=== PATIENT | female | born 1995 | race Caucasian/White ===

== ENCOUNTER 2023-10-05 21:38 | Observation (INO) | payer OTHER, SELFPAY ==
[2023-10-05 22:03] VITALS: BP 146/94; BP 203/148; PULSE 104; PULSE 132; RESP 20; O2SAT 100; BMI 22.9
[2023-10-05] MEDS: LORazepam 1 MG TABLET 2 MG PO (22:08)
[2023-10-05 22:30] VITALS: BP 135/86; PULSE 93; RESP 18; TEMP 37.4; O2SAT 100
--- NOTE | 2023-10-05 22:30 | ECG_ITS ---
Test Reason : HYPERTENSION Blood Pressure : / mmHG Vent. Rate : 101 BPM Atrial Rate : 101 BPM P-R Int : 118 ms QRS Dur : 072 ms QT Int : 468 ms P-R-T Axes : 072 078 068 degrees QTc Int : 606 ms Sinus tachycardia Prolonged QT Nonspecific ST abnormality Abnormal ECG No previous ECGs available Referred By: Amrita Andersen Electronically Signed By:TY REINOSO MD
--- NOTE | 2023-10-05 22:39 | ED.GENADULT ---
HPI - General Adult General Chief complaint: General Medical Stated complaint: N/V X 3DAYS Time Seen by Provider: 10/05/23 22:30 Source: patient Mode of arrival: ambulatory Limitations: no limitations History of Present Illness HPI narrative: patient comes to the emergency room complaining of nausea and vomiting for 3 days. When patient arrived to the emergency room, patient had a panic attack. Patient denies abdominal pain, patient complaining of muscle spasms In upper and lower extremities. this is as much history that we could get from the patient, otherwise, patient answers to all other questions I do not know . Related Data Allergies Allergy/AdvReac Type Severity Reaction Status Date / Time No Known Allergies Allergy Verified 10/05/23 22:03 Review of Systems Review of Systems: Constitutional : No Weight loss, No Fever, No Chills, No Night Sweats, No Fatigue, No Malaise ENT/Mouth : No Hearing loss, No Ear Pain, No Nasal Congestion, No Sinus Pain, No Hoarseness, No sore throat, No Rhinorrhea, No Swallowing Difficulty Eyes: No Eye Pain, No Swelling, No Redness, No Foreign Body, No Discharge, No Vision Changes Cardiovascular : No Chest Pain, No SOB, No Dyspnea on Exertion, No Orthopnea, No Edema, No Palpitations Respiratory : No Cough, No Sputum, No Wheezing, No Smoke Exposure, No Dyspnea Gastrointestinal : complaining of nausea vomiting for 3 days,No Constipation, No abdominal Pain, No Hematochezia, No Melena Genitourinary : no irregular bleeding, No Dysuria, No Urinary Frequency, No Hematuria, No Urinary Incontinence, No Urgency, No Flank Pain, No Urinary Flow Changes, No Hesitancy Musculoskeletal : No joint pain, No Myalgias, No Joint Swelling, complaining of muscle spasms in upper extremities and lower extremities Skin : No Skin Lesions, No rash Neuro : No Weakness, No Numbness, No Paresthesias, No Loss of Consciousness, No Dizziness, No Headache Psych : Panic attack,No Depression, No SI/HI/AH/VH, No Social Issues, Heme/Lymph: No Bruising, No Bleeding,No Lymphadenopathy Endocrine : No Polyuria, No Polydipsia, No Temperature Intolerance PMFSH Social History Social History Advance Directives: No Advance Directives Information Provided: No Physical Exam ED Vital Signs: Vital Signs - 24 hr 10/05/23 22:03 10/05/23 22:30 10/05/23 23:01 Temperature 99.4 F Pulse Rate 132 H 93 92 Respiratory Rate 20 18 20 Blood Pressure 203/148 H 135/86 136/96 H Pulse Oximetry 100 100 99 Oxygen Delivery Method Room Air Room Air Room Air 10/05/23 23:26 10/06/23 01:00 Temperature 98.6 F 98.7 F Pulse Rate 78 71 Respiratory Rate 19 20 Blood Pressure 132/84 118/77 Pulse Oximetry 100 99 Oxygen Delivery Method Room Air BMI result Body Mass Index 22.9 Const Other: Appearance: Alert. Oriented X3. No acute distress. Eyes: Pupils equal, round and reactive to light. ENT: Pharynx normal. Neck: Normal inspection. Neck supple. No lymph nodes noted. No crepitus CVS: Normal heart rate and rhythm. Pulses normal. Normal S1 and S2 Respiratory: No respiratory distress. Breath sounds normal. No Wheezing. No rales Abdomen: Soft and nontender. No rigidity. No distention. Skin: Skin warm and dry. Normal skin color. Normal skin turgor. Extremities: No lower extremity edema. No Lacerations. No Rash Neuro: Oriented X 3. No motor deficit. No sensory deficit. Moving all extremities. No slurred speech. CN 2 through 12 grossly intact Psych: calm, appear anxious, not quite answering questions other than I do not know Medications Administered Discontinued Medications Generic Name Dose Route Start Last Admin Trade Name Freq PRN Reason Stop Dose Admin Sodium Chloride 1,000 mls @ 999 mls/hr 10/05/23 22:40 10/06/23 00:50 Ns IVCONT 10/05/23 23:40 Infused .Q1H1M ONE Infusion Magnesium Sulfate 2 gm in 50 mls @ 25 mls/hr 10/05/23 22:56 10/06/23 01:25 Magnesium Sulfate/H2o IV 10/06/23 00:55 Infused ONCE ONE Infusion Lorazepam 2 mg 10/05/23 22:02 10/05/23 22:08 Lorazepam 1 Mg Tablet PO 10/05/23 22:03 2 mg ONCE ONE Administration Ondansetron HCl 4 mg 10/05/23 22:40 10/05/23 23:01 Ondansetron Hcl 4 Mg/2 Ml Vial IVPUSH 10/05/23 22:41 4 mg ONCE ONE Administration Medical Decision Making Medical Decision Making MDM Narrative: - my interpretation EKG, normal sinus tachycardia, 100 101, no ST segment depression elevation, no T-wave inversion, QTC 606 - all the patient's labs pending. Given the patient's prolonged QTC, patient was given IV magnesium 2 g. We will recheck the EKG after the IV magnesium has been given - troponin is elevated, no previous baselines. We will repeat troponin 3 hours after the initial set - After 3 hours, QTC improved to 530, still elevated. However, troponin 2. Increased. - patient's troponin 1 Was 43.9, troponin 2 was 52.9 - I discussed the patient with Dr. Smith from Cardiology, observation recommended - discussed the patient with Dr. Gould. patient being admitted. Patient's vital stable, blood pressure 118/77, heart rate 71, respirations 20, oxygen saturation 99% on room air. Differential Diagnosis Differential Diagnoses: The differential diagnosis associated with the presentation includes ( Electrolyte abnormality, ACS, NSTEMI, normal variant) Admission/Observation Consideration of admission/observation: Escalation of care including admission/observation considered Consult Healthcare Provider Management of the patient was discussed with: Hospitalist and Customer Experience Associate Lab Data [facility] Lab Attestation statement: I reviewed the patient's lab results. 10/05/23 22:41 10/05/23 22:41 Labs: Lab Results 10/05/23 10/06/23 Range/Units 22:41 01:38 WBC 7.5 (4.8-10.8) X10*3/uL RBC 6.14 H (4.20-5.50) X10*6/uL Hgb 15.7 (12.0-16.0) g/dl Hct 46.0 (37.0-47.0) % MCV 74.9 L (80.0-98.0) fL MCH 25.6 L (27.0-33.0) pg MCHC 34.1 (31.0-35.0) g/dl RDW 15.8 (11.0-16.0) % Plt Count 342 (160-400) X10*3/uL MPV 11.3 (9.4-12.3) fL Immature Gran % (Auto) 0.4 (0.0-0.4) % Neut % (Auto) 76.3 H (45-73) % Lymph % (Auto) 16.2 L (20-40) % [place] % (Auto) 7.0 (2-11) % Eos % (Auto) 0.0 (0-4) % Baso % (Auto) 0.1 (0-2) % Lymph # (Auto) 1.2 (1.2-4.9) X10*3/uL [place] # (Auto) 0.5 (0.1-1.2) X10*3/uL Eos # (Auto) 0.0 (0.0-0.4) X10*3/uL Baso # (Auto) 0.0 (0.0-0.2) X10*3/uL Abs Immat Gran (auto) 0.03 (0.00-0.03) X10*3/uL Absolute Neuts (auto) 5.7 (2.0-8.3) x10*3/uL Absolute Nucleated RBC 0.000 (0.0-0.012) X10*3/uL Nucleated RBC % (auto) 0.0 (0.0-0.2) /100WBC Sodium 136 (135-145) mmol/L Potassium 3.4 (3.3-5.1) mmol/L Chloride 106 (96-108) mmol/L Carbon Dioxide 16 L (22-29) mmol/L Anion Gap 17 (12-20) BUN 15 (9-16) mg/dL Creatinine 0.78 (0.5-1.4) mg/dL Estim Creat Clear Calc 84.9 Estimated GFR > 60 Random Glucose 191 H (60-115) mg/dL Calcium 9.4 (8.4-10.2) mg/dL Magnesium 2.0 2.6 (1.6-2.6) mg/dL Total Bilirubin 0.3 (0.0-1.0) mg/dL Direct Bilirubin 0.1 (0.0-0.5) mg/dL AST 73 H (5-31) U/L ALT 155 H (0-31) U/L Alkaline Phosphatase 86 (39-117) U/L Troponin I High Sens 43.9 H 52.9 H* (<3.5-17.0) ng/L Total Protein 7.7 (6.5-8.0) g/dL Albumin 4.2 (3.5-5.0) g/dL Lipase 7 L (8-78) U/L Beta HCG, Quant < 2 mIU/mL Independent Interpretation I performed an independent interpretation of an: EKG Critical Care Time Critical Care Time Critical Care Time: Yes Total Critical Care Time: 60 Attestation: I have personally provided critical care time. Time includes review of lab data, radiology results, discussion with consultants, and monitoring for potential decompensation. Intervention performed as documented. Discharge Plan Discharge Clinical Impression: Muscle spasm, Prolonged QT interval Patient Disposition: Admitted as Observation
--- NOTE | 2023-10-05 22:50 | MHC.EDTECH ---
Patient was changed into hospital attire and placed on the cardiac specialist, EKG was taken per order and signed by provider,labs were obtained and sent to lab. call roy within reach of patient
[2023-10-05 22:57] LABS: Basophils Percent Auto 0.1 % (0-2); Hemoglobin 15.7 g/dl (12.0-16.0); Imm Gran Abs Auto 0.03 X10*3/uL (0.00-0.03); Imm Gran Pct Auto 0.4 % (0.0-0.4); Lymphocytes Absolute Auto 1.2 X10*3/uL (1.2-4.9); Lymphocytes Percent Auto 16.2 % (20-40); MANUAL DIFF FLAG NO; Mean Corpuscular HGB Conc 34.1 g/dl (31.0-35.0); Mean Corpuscular Hemoglobin 25.6 pg (27.0-33.0); Mean Corpuscular Volume 74.9 fL (80.0-98.0); Mean Platelet Volume 11.3 fL (9.4-12.3); Monocytes Absolute Auto 0.5 X10*3/uL (0.1-1.2); Neutrophils Absolute Auto 5.7 x10*3/uL (2.0-8.3); Neutrophils Percent Auto 76.3 % (45-73); Platelet Count 342 X10*3/uL (160-400); Red Blood Count 6.14 X10*6/uL (4.20-5.50); Red Cell Distribution Width 15.8 % (11.0-16.0); White Blood Count 7.5 X10*3/uL (4.8-10.8)
[2023-10-05 23:01] VITALS: BP 136/96; PULSE 92; RESP 20; O2SAT 99
[2023-10-05] MEDS: ondansetron HCL 4 MG/2 ML VIAL IVPUSH (23:01)
[2023-10-05] MEDS: 0.9 % Sodium Chloride 1,000 ML 999 ML IVCONT (23:01)
--- NOTE | 2023-10-05 23:02 | PC.NURSE ---
20g RAC placed, medication administered per MAR
[2023-10-05] MEDS: Magnesium Sulfate/H2O 2 GM/50 ML PIGGYBACK IV (23:13)
[2023-10-05 23:18] LABS: Alanine Aminotransferase 155 U/L (0-31); Albumin Level 4.2 g/dL (3.5-5.0); Alkaline Phosphatase 86 U/L (39-117); Anion Gap 17 (12-20); Aspartate Amino Transferase 73 U/L (5-31); Bilirubin Direct 0.1 mg/dL (0.0-0.5); Bilirubin Total 0.3 mg/dL (0.0-1.0); Blood Urea Nitrogen 15 mg/dL (9-16); Calcium 9.4 mg/dL (8.4-10.2); Carbon Dioxide 16 mmol/L (22-29); Chloride 106 mmol/L (96-108); Creatinine Clr Calc Pharmacy 84.9; Estimated Glomerular Filt Rate > 60; Glucose Random 191 mg/dL (60-115); Lipase 7 U/L (8-78); Potassium 3.4 mmol/L (3.3-5.1); Sodium 136 mmol/L (135-145); Total Protein 7.7 g/dL (6.5-8.0)
[2023-10-05 23:19] LABS: HCG Quantitative < 2 mIU/mL; Troponin-I High Sensitivity 43.9 ng/L (<3.5-17.0)
[2023-10-05 23:26] VITALS: BP 132/84; PULSE 78; RESP 19; TEMP 37; O2SAT 100
--- NOTE | 2023-10-05 23:27 | MHC.EDTECH ---
Hourly rounds and vitals completed, patient is unable to give urine sample at this time will re-attempt. Call roy within reach and visitor at bedside.
[2023-10-06 01:00] VITALS: BP 118/77; PULSE 71; RESP 20; TEMP 37.1; O2SAT 99
--- NOTE | 2023-10-06 01:09 | ECG_ITS ---
Test Reason : REPEAT Blood Pressure : / mmHG Vent. Rate : 080 BPM Atrial Rate : 080 BPM P-R Int : 134 ms QRS Dur : 088 ms QT Int : 460 ms P-R-T Axes : 047 066 052 degrees QTc Int : 530 ms Normal sinus rhythm Prolonged QT Nonspecific ST abnormality Abnormal ECG When compared with ECG of 05-OCT-2023 22:42, QT has shortened Referred By: Amrita Andersen Electronically Signed By:TY REINOSO MD
--- NOTE | 2023-10-06 01:26 | MHC.EDTECH ---
Repeat EKG taken per order,hourly rounds and vitals completed.
--- NOTE | 2023-10-06 01:39 | MHC.EDTECH ---
Repeat labs drawn and sent to lab.
[2023-10-06 02:09] LABS: Magnesium 2.6 mg/dL (1.6-2.6)
[2023-10-06 02:25] LABS: Troponin-I High Sensitivity 52.9 ng/L (<3.5-17.0)
--- NOTE | 2023-10-06 03:24 | P.HPHOSP_ITS ---
History of Present Illness Date of Service: 10/06/23 Chief Complaint: Nausea vomiting This is a 27-year-old female with no pertinent significant past medical history who presents to the emergency department for evaluation of nausea and vomiting. Patient states it has been ongoing for the last 3 days. Also has multiple complaints including muscle spasms, chest pain. Patient states she has been feeling sick and anxious for the last 3 days. No specifics given, patient is very vague in her complaints. States the chest pain does not increase with ambulation and does not resolve with rest. She was found to be tachycardic and hypertensive upon arrival. No fever, chills, palpitations, shortness of breath, abdominal pain, changes in urinary or bowel habits. In the emergency department, troponin found to be elevated and patient found to have a prolonged QT interval. Cardiology was consulted who requested admission for observation. Review of Systems 2 Constitutional: Constitutional: Reports fatigue, Reports lethargy and Reports weakness Cardiovascular: Cardiovascular: Reports chest pain Respiratory: Respiratory: Reports no additional respiratory complaints Gastrointestinal: Gastrointestinal: Reports nausea and Reports vomiting Genitourinary: Genitourinary: Reports no additional female genitourinary complaints Neurologic: Reports weakness Endocrine: Endocrine: Reports fatigue PMFSH Pertinent family history: No family history of early CAD Social History Patient Tobacco Use Status: Never used Tobacco Meds Allergies Allergy/AdvReac Type Severity Reaction Status Date / Time No Known Allergies Allergy Verified 10/05/23 22:03 Physical Exam 2 Vital Signs and Narrative: Vital Signs: Last Vital Signs Temp 98.7 F 10/06/23 01:00 Pulse 71 10/06/23 01:00 Resp 20 10/06/23 01:00 BP 118/77 10/06/23 01:00 Pulse Ox 99 10/06/23 01:00 O2 Del Method Room Air 10/05/23 23:26 BMI result Body Mass Index 22.9 Young female lying in bed in no distress Neck supple, no JVD Regular rate and rhythm, S1-S2 heard Regular breath sounds bilaterally, no wheezing or crackles appreciated Abdomen soft nontender, no guarding, no rigidity Patient is awake, alert and oriented to self, place, time and person ; no focal motor deficit Psych: Normal mood No pedal edema Results Labs 10/05/23 22:41 10/05/23 22:41 Labs: Laboratory Results - last 24 hr 10/05/23 10/06/23 22:41 01:38 MCV 74.9 L MCH 25.6 L MCHC 34.1 RDW 15.8 Plt Count 342 MPV 11.3 Immature Gran % (Auto) 0.4 Neut % (Auto) 76.3 H Lymph % (Auto) 16.2 L [place] % (Auto) 7.0 Eos % (Auto) 0.0 Baso % (Auto) 0.1 Lymph # (Auto) 1.2 [place] # (Auto) 0.5 Eos # (Auto) 0.0 Baso # (Auto) 0.0 Abs Immat Gran (auto) 0.03 Absolute Neuts (auto) 5.7 Absolute Nucleated RBC 0.000 Nucleated RBC % (auto) 0.0 Anion Gap 17 Estim Creat Clear Calc 84.9 Estimated GFR > 60 Random Glucose 191 H Calcium 9.4 Magnesium 2.0 2.6 Total Bilirubin 0.3 Direct Bilirubin 0.1 AST 73 H ALT 155 H Alkaline Phosphatase 86 Total Protein 7.7 Albumin 4.2 Lipase 7 L Beta HCG, Quant < 2 Assessment and Plan (1) Prolonged QT interval: Status: Acute (2) Elevated troponin: Status: Acute Plan This is a 27-year-old female with no pertinent significant past medical history who presents to the emergency department for evaluation of nausea and vomiting. #. Elevated troponin with prolonged QT interval: Will admit for observation with cardiac monitoring. IV magnesium given in the ER. Cardiology consulted from the ER, appreciate assistance. Trending troponin #. Elevated blood pressure: Upon arrival which normalized after lorazepam. ?anxiety leading to tachycardia. Continue to monitor #. Nausea/vomiting: Symptomatic treatment for now #. Hyperglycemia: Obtaining A1c #. Elevated liver enzymes: Outpatient follow-up Med rec pending DVT prophylaxis: None Quality Stroke Does the patient have a stroke diagnosis?: No VTE Prior VTE?: No VTE Risk Level:: Medical - low VTE Device Contraindication: Treatment Not Indicated VTE Drug Contraindication: Treatment Not Indicated
--- OUTSIDE RECORDS SUMMARY | 2023-10-06 03:28 | XMS_ITS | Continuity of Care Document ---
Author Name Unknown Organization [facility] ter Address [address] [place] [id number] Care Team Providers Care Insurance Solicitor Name Role Phone Martha Van MD Primary Care Physician [phone] [facility] [place] - 04/15/[address] [phone]- Encounter Diagnosis Gastritis(Final) - 04/15/21 Discharge Disposition: A-D/C Home Attending Physician: Joey Marie MD Admitting Physician: Joey Marie MD Referring Physician: Not on Staff, Referring MD Allergies, Adverse Reactions, Alerts Substance Reaction Severity Status Shrimp THROAT SWELLING Unknown Active Immunizations Given and Recorded Vaccine Date Status Refusal Reason influenza virus vaccine, inactivated 09/26/12 Give n influenza virus vaccine, inactivated 09/27/11 Give n Influenza Inactive (IM) (oldterm) 1 08/01/09 Given Influenza Inactive (IM) (oldterm) 2 10/14/01 Given Human Papillomavirus Vaccine 3 08/01/09 Given Human Papillomavirus Vaccine 07/08/08 Given Human Papillomavirus Vaccine 03/28/07 Given Tet/Diphth/Acel, Pertussis (oldterm) 07/08/08 Give n Meningococcal Conjugate Vaccine 03/28/07 Given Diphth/Pertussis,Acel/Tetanus (oldterm) 11/29/99 G iven Diphth/Pertussis,Acel/Tetanus (oldterm) 02/11/96 G iven Diphth/Pertussis,Acel/Tetanus (oldterm) 07/30/95 G iven Diphth/Pertussis,Acel/Tetanus (oldterm) 05/31/95 G iven Diphth/Pertussis,Acel/Tetanus (oldterm) 01/16/95 G iven Measles/Mumps/Rubella Virus Vaccine 11/28/99 Given Measles/Mumps/Rubella Virus Vaccine 02/11/96 Given Haemophilus B Conj Vaccine (oldterm) 02/11/96 Give n Haemophilus B Conj Vaccine (oldterm) 07/30/95 Give n Haemophilus B Conj Vaccine (oldterm) 05/31/95 Give n Haemophilus B Conj Vaccine (oldterm) 01/16/95 Give n Poliovirus Vaccine, Inactivated 02/11/96 Given Poliovirus Vaccine, Inactivated 07/30/95 Given Poliovirus Vaccine, Inactivated 05/31/95 Given Poliovirus Vaccine, Inactivated 01/16/95 Given Hepatitis B Vaccine (old term) 4 05/31/95 Given Hepatitis B Vaccine (old term) 5 94 Given Hepatitis B Vaccine (old term) 6 94 Given 1Admin Note: VIS Given 2Admin Note: hx varicella '97 3Admin Note: VIS Given 4Admin Note: HEP B 5Admin Note: HEP B 6Admin Note: HEP B Medications Aerochamber See Instructions, # 2 applicator, Maintenance, see instructions, 10/10/11 15:12:07 Start Date: 10/10/11 Status: Ordered Aerochamber Aerochamber, See Instructions, # 1 box, Refills 0, Tot. Refills 0, Maintenance, For use with flovent, 10/21/14 19:02:22, Compound Start Date: 10/21/14 Status: Ordered albuterol CFC free 90 mcg/inh inhalation aerosol 1, puffs, Inhalation, 4 times a day, PRN, # 1 each, Refills 11, Tot. Refills 11, Maintenance, 09/10/16 9:48:41, Aerosol, Route to Pharmacy Electronically, [id number], [facility]/pharmacy #[id number], Compound Start Date: 09/10/16 Stop Date: 09/05/17 Status: Ordered fluticasone CFC free 110 mcg/inh inhalation aerosol 2 puffs, Inhalation, 2 times a day, # 1 each, 11 Refills, Maintenance, 09/10/16 9:50:44, Aerosol Start Date: 09/10/16 Stop Date: 09/05/17 Status: Ordered Zofran 4 mg oral tablet 1 tablet = 4 mg, By Mouth, Every 8 hours, PRN as needed for nausea/vomiting, # 3 tablet, 0 Refills,Maintenance, 02/12/17 6:14:09, Tablet Start Date: 02/12/17 Stop Date: 02/13/17 Status: Ordered Problem List Condition Effective Dates Status Health Status Inform ant Allergic rhinitis(Confirmed) Active Constipation(Confirmed) Active Difficulty sleeping(Confirmed) Active Dysmenorrhea(Confirmed) Active EIA - Exercise-induced asthma(Confirmed) Active Vital Signs Most recent to oldest [Reference Range]: 1 2 3 Height 166 cm (04/15/21 9:58 AM) 166 cm (04/15/21 9:52 AM) Oxygen Saturation [94-100 %] 100 % (04/15/21 4:00 PM) 98 % (04/15/21 9:52 AM) 99 % (04/15/21 9:46 AM) Pulse Rate [55-90 bpm] 78 bpm (04/15/21 4:00 PM) 94 bpm *H* (04/15/21 9:52 AM) 78 bpm (04/15/21 9:46 AM) Blood Pressure [90-138/55-84 mm Hg] 106/93mm Hg (04/15/21 4:00 PM) 124/68mm Hg (04/15/21 9:52 AM) Respiratory Rate [16-30 br/min] 18 br/min (04/15/21 4:00 PM) 20 br/min (04/15/21 9:52 AM) Temperature [96.8-100.4 DegF] 98.6 DegF (04/15/21 4:00 PM) 98.4 DegF (04/15/21 9:52 AM) Mode of Delivery (Oxygen) Room air (04/15/21 4:00 PM) Room air (04/15/21 9:52 AM) Room air (04/15/21 9:46 AM) Blood pressure sites Arm, left (04/15/21 4:00 PM) Arm, right (04/15/21 9:52 AM) Temperature Route Oral (04/15/21 4:00 PM) Oral (04/15/21 9:52 AM) Social History Social History Type Response Smoking Status Never smoker entered on: 10/21/14 Sex
--- OUTSIDE RECORDS SUMMARY | 2023-10-06 03:28 | XMS_ITS | Continuity of Care Document ---
Author Name Unknown Organization [facility] ter Address [address] [place] [id number]- Care Team Providers Care Cemetery Manager Name Role Phone Martha Van MD Primary Care Physician [place] [facility] - 10/11/[address] [address]- Discharge Disposition: A-D/C Home Attending Physician: Jc MARTINEZ [OB], Mariel Rangel Admitting Physician: Jc MARTINEZ [OB], Mariel Rangel Referring Physician: Jc MARTINEZ [OB], Mariel Rangel Allergies, Adverse Reactions, Alerts Substance Reaction Severity [...] a day, PRN, # 1 each, Refills 0, Tot. Refills 0, Maintenance, 04/24/21 17:55:00 EDT, Aerosol, Route to Pharmacy Electronically, [id number], [facility]/pharmacy #[id number], 166, cm, 04/15/21 9:58:00 EDT, Height Start Date: 04/24/21 Stop Date: 05/24/21 Status: Ordered fluticasone CFC free 110 mcg/inh inhalation aerosol 2 puffs, Inhalation, 2 times a day, # 1 each, 0 Refills, Maintenance, 04/24/21 17:55:00 EDT, Aerosol, [facility]/pharmacy #[id number], 166, cm, 04/15/21 9:58:00 EDT, Height Start Date: 04/24/21 Stop Date: 05/24/21 Status: Ordered Prenatabs Rx oral tablet 1 tablet, By Mouth, Daily, # 30 tablet, 0 Refills, Maintenance, 04/24/21 18:22:00 EDT, Tablet, [facility]/pharmacy #[id number], Partial fill upon patient request if the prescription is for a schedule II opioid drug., 1 tablet By Mouth Daily, 166, cm, 04/15/21 9:58... Start Date: 04/24/21 Status: Ordered Tylenol 325 mg oral tablet 975 mg, Tablet, By Mouth, Every 6 hours, PRN for Pain , Moderate, Routine, 10/11/21 6:49:00 EST Start Date: 10/11/21 Stop Date: 10/11/21 Status: Discontinued Zofran 4 mg oral tablet 1 tablet = 4 mg, By Mouth, Every 8 hours, PRN as needed for nausea/vomiting, # 9 tablet, 0 Refills,Maintenance, 04/24/21 17:55:00 EDT, Tablet, [facility]/pharmacy #[id number], 166, cm, 04/15/21 9:58:00 EDT, Height Start Date: 04/24/21 Stop Date: 04/27/21 Status: Ordered Problem List Condition Effective Dates Status Health Status Inform ant Allergic rhinitis(Confirmed) Active Asthma(Confirmed) Active Constipation(Confirmed) Active Difficulty sleeping(Confirmed) Active Dysmenorrhea(Confirmed) Active EIA - Exercise-induced asthma(Confirmed) Active Gestational diabetes mellitu s, antepartum(Confirmed) Active Obese class I(Confirmed) Active Procedures Procedure Date Related Diagnosis Body Site Status [place] tooth Completed Vital Signs Most recent to oldest [Reference Range]: 1 2 3 Height 158 cm (10/10/21 4:08 PM) 158 cm (10/10/21 12:24 PM) Weight 82 kg (10/10/21 4:13 PM) 82 kg (10/10/21 4:08 PM) Oxygen Saturation [94-100 %] 100 % (10/11/21 6:39 AM) 99 % (10/10/21 8:47 PM) 97 % (10/10/21 2:11 PM) Pulse Rate [55-90 bpm] 90 bpm (10/10/21 4:08 PM) 72 bpm (10/10/21 12:24 PM) Body Mass Index [18.5-24.99] 32.85 *>HHI* (10/10/21 4:08 PM) Blood Pressure [90-138/55-84 mm Hg] 126/49mm Hg (10/11/21 6:39 AM) 98/52mm Hg (10/10/21 8:47 PM) 119/65mm Hg (10/10/21 4:08 PM) Respiratory Rate [16-30 br/min] 18 br/min (10/11/21 7:27 AM) 18 br/min (10/11/21 6:39 AM) 18 br/min (10/10/21 8:47 PM) Temperature [96.8-100.4 DegF] 98.1 DegF (10/10/21 8:47 PM) 98.1 DegF (10/10/21 4:08 PM) 98.3 DegF (10/10/21 12:24 PM) Blood pressure sites Arm, left (10/10/21 4:08 PM) Arm, right (10/10/21 12:24 PM) Temperature Route Oral (10/10/21 8:47 PM) Oral (10/10/21 4:08 PM) Oral (10/10/21 12:24 PM) Dry Weight 82 kg (10/10/21 4:08 PM) Social History Social History Type Response Smoking Status Never smoker entered on: 10/21/14 Sex
--- OUTSIDE RECORDS SUMMARY | 2023-10-06 03:28 | XMS_ITS | Continuity of Care Document ---
Author Name Unknown Organization [facility] Address [address] [place] [address]- Care Team Providers Care Riding Double Name Role Phone Martha Van MD Primary Care Physician En[place] [facility] [place] Date(s): 05/30/23 - 06/30/[address] [address] Attending Physician: Miguel Green MD Admitting Physician: Miguel Green MD Allergies, Adverse Reactions, Alerts No Known Medication Allergies Substance Reaction Severity Status Shrimp THROAT SWELLING [...] 17:55:00 EDT, Aerosol, Route to Pharmacy Electronically, [id number], [facility]/pharmacy #1972, 166, cm, 04/15/21 9:58:00 EDT, Height Start Date: 04/24/21 Stop Date: 05/24/21 Status: Ordered fluticasone CFC free 110 mcg/inh inhalation aerosol 2 puffs, Inhalation, 2 times a day, # 1 each, 0 Refills, Maintenance, 04/24/21 17:55:00 EDT, Aerosol, [facility]/pharmacy #1972, 166, cm, 04/15/21 9:58:00 EDT, Height Start Date: 04/24/21 Stop Date: 05/24/21 Status: Ordered Prenatabs Rx oral tablet 1 tablet, By Mouth, Daily, # 30 tablet, 0 Refills, Maintenance, 04/24/21 18:22:00 EDT, Tablet, [facility], Partial fill upon patient request if the prescription is for a schedule II opioid drug., 1 tablet By Mouth Daily, 166, cm, 04/15/21 9:58... Start Date: 04/24/21 Status: Ordered Zofran 4 mg oral tablet 1 tablet = 4 mg, By Mouth, Every 8 hours, PRN as needed for nausea/vomiting, # 9 tablet, 0 Refills,Maintenance, 04/24/21 17:55:00 EDT, Tablet, [facility], 166, cm, 04/15/21 9:58:00 EDT, Height Start Date: 04/24/21 Stop Date: 04/27/21 Status: Ordered Problem List Condition Confirmation Course Effective Dates Status Health St atus Informant Allergic rhinitis Confirmed Active Asthma Confirmed Active Constipation Confirmed Active Difficulty sleeping Confirmed Active Dysmenorrhea Confirmed Active EIA - Exercise-induced asthma Confirmed Active Gestational diabetes mellitus, antepartum Confirmed Active Social History Social History Type Response Smoking Status Never smoker entered on: 10/21/14 Sex Patient Care team information Care Team Personnel Name: Martha Van MD Position: [facility] Physician - Primary Care Member Role: PCP Address: Address: [address] [place] [address] [place] [address]- Name: Kaylene Boudreaux RN Position: S RN Member Role: Primary Care Nurse Name: Pallavi Dobbins RN Position: [facility] RN Member Role: Primary Care Nurse Care Team Related Persons Name: DARIAN COBB Address: home [address] [place], [place] Name: DEVONTE COBB Address: home [address] [place] [address] Name: ABEBA QUEZADA Address: home [address] [place] [address] Name: AYAN QUEZADA Address: home [address] [place] [address] Name: DARIAN GARCIA Address: home [address] [place] [address]
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
--- OUTSIDE RECORDS SUMMARY | 2023-10-06 03:28 | XMS_ITS | Continuity of Care Document ---
Author Name Unknown Organization [facility] Address [address] [place] [address]- Care Team Providers Care Nub Card Tender Name Role Phone Martha Van MD Primary Care Physician Encounter [facility] [place] Date(s): 10/05/22 - 10/05/[address] [address]- Discharge Disposition: A-D/C Home Attending Physician: Miguel Green MD Admitting Physician: Miguel Green MD Referring Physician: Miguel Green MD Allergies, Adverse Reactions, Alerts Substance Reaction [...] 17:55:00 EDT, Aerosol, Route to Pharmacy Electronically, [id number], [facility]/pharmacy #1972, 166, cm, 04/15/21 9:58:00 EDT, [...] Active Gestational diabetes mellitus, antepartum Confirmed Active Vital Signs Most recent to oldest [Reference Range]: 1 2 3 Height 160 cm (10/05/22 12:11 PM) Weight 66.3 kg (10/05/22 12:11 PM) Oxygen Saturation [94-100 %] 100 % (10/05/22 3:55 PM) 99 % (10/05/22 3:50 PM) 98 % (10/05/22 3:45 PM) Pulse Rate [55-90 bpm] 64 bpm (10/05/22 12:11 PM) Body Mass Index [18.5-24.99 kg/m2] 25.9 kg/m2 *H* (10/05/22 12:11 PM) Blood Pressure [90-138/55-84 mm Hg] 112/65mm Hg (10/05/22 3:55 PM) 113/49mm Hg (10/05/22 3:50 PM) 102/56mm Hg (10/05/22 3:45 PM) Respiratory Rate [16-30 br/min] 21 br/min (10/05/22 3:55 PM) 16 br/min (10/05/22 3:50 PM) 16 br/min (10/05/22 3:45 PM) Temperature [96.8-100.4 DegF] 97.8 DegF (10/05/22 12:11 PM) Mode of Delivery (Oxygen) Room air (10/05/22 3:55 PM) Room air (10/05/22 3:50 PM) Room air (10/05/22 3:45 PM) Blood pressure sites Arm, right (10/05/22 12:11 PM) Temperature Route Temporal (10/05/22 12:11 PM) Dry Weight 66.3 kg (10/05/22 12:11 PM) Dry Weight Obtained Via Standing scale (10/05/22 12:11 PM) Social History Social History Type Response Smoking Status Never smoker entered on: 10/21/14 Sex Patient Care team information Care Team Personnel Name: Martha Van MD Position: [facility] Primary Care Physician Member Role: PCP Address: Address: [address] [place] [address] Name: Cydney Killian RN Position: S RN Member Role: Primary Care Nurse Name: Kaylene Boudreaux RN Position: S RN Member Role: Primary Care Nurse Name: Pallavi Dobbins RN Position: [facility] RN Member Role: Primary Care Nurse Care Team Related Persons Name: DARIAN COBB Address: [address] [place] [address] Name: DEVONTE COBB Address: [address] [place] [address] Name: ABEBA QUEZADA Address: [address] [place] [address] Name: AYAN QUEZADA Address: [address] [place] [address] Name: DARIAN GARCIA Address: [address] [place] [address]
--- OUTSIDE RECORDS SUMMARY | 2023-10-06 03:28 | XMS_ITS | Continuity of Care Document ---
Author Name Unknown Organization [facility] Address [address] [place] [address]- Care Team Providers Care Author'S Agent Name Role Phone Martha Van MD Primary Care Physician [place] [facility] [place] 07/04/23 - 07/04/[address] [address]- Discharge Disposition: A-D/C Home Attending Physician: Miguel [...] 17:55:00 EDT, Aerosol, Route to Pharmacy Electronically, [id number], [facility], 166, cm, 04/15/21 9:58:00 EDT, [...] 0 Refills, Maintenance, 04/24/21 18:22:00 EDT, Tablet, [facility]/pharmacy #1972, Partial fill upon patient request if the prescription is for a schedule II opioid drug., 1 tablet By Mouth Daily, 166, cm, 04/15/21 9:58... Start Date: 04/24/21 Status: Ordered Zofran 4 mg oral tablet 1 tablet = 4 mg, By Mouth, Every 8 hours, PRN as needed for nausea/vomiting, # 9 tablet, 0 Refills,Maintenance, 04/24/21 17:55:00 EDT, Tablet, [facility]/pharmacy #1972, 166, cm, 04/15/21 9:58:00 EDT, [...] to oldest [Reference Range]: 1 2 3 Oxygen Saturation [94-100 %] 100 % (07/04/23 12:00 PM) 99 % (07/04/23 11:40 AM) 99 % (07/04/23 11:30 AM) Blood Pressure [90-138/55-84 mm Hg] 119/67mm Hg (07/04/23 11:30 AM) 129/88mm Hg (07/04/23 11:15 AM) 123/75mm Hg (07/04/23 11:00 AM) Respiratory Rate [16-30 br/min] 14 br/min *L* (07/04/23 12:00 PM) 15 br/min *L* (07/04/23 11:30 AM) 7 br/min *L* (07/04/23 11:15 AM) Temperature [96.8-100.4 DegF] 98.3 DegF (07/04/23 10:30 AM) Liters per Minute 0 L/min (07/04/23 11:30 AM) 0 L/min (07/04/23 11:15 AM) 0 L/min (07/04/23 11:00 AM) Mode of Delivery (Oxygen) Room air (07/04/23 11:40 AM) Room air (07/04/23 11:30 AM) Room air (07/04/23 11:15 AM) Blood pressure sites Arm, left (07/04/23 11:30 AM) Arm, left (07/04/23 11:15 AM) Arm, left (07/04/23 11:00 AM) Temperature Route Temporal (07/04/23 10:30 AM) Social History Social History Type Response Smoking Status Never smoker entered on: 10/21/14 Sex Patient Care team information Care Team Personnel Name: Martha Van MD Position: [facility] Physician - Primary Care Member Role: PCP Address: Address: [address] [place] [address] Primary [address] Name: Kaylene Boudreaux RN Position: S RN Member Role: Primary Care Nurse Name: Pallavi Dobbins RN Position: [facility] RN Member Role: Primary Care Nurse Care Team Related Persons Name: DARIAN COBB Address: [address] [place] [address] Name: DEVONTE COBB Address: [address] [place] [address] Name: ABEBA QUEZADA Address: [address] [place] [address] Name: AYAN QUEZADA Address: [address] [place] [address] Name: DARIAN GARCIA Address: [address] [place] [address]
--- OUTSIDE RECORDS SUMMARY | 2023-10-06 03:28 | XMS_ITS | Continuity of Care Document ---
Author Name Unknown Organization [facility] ter Address [address] [place] [id number] Care Team Providers Care It Recruiter Name Role Phone Martha Van MD Primary Care Physician [phone] Encounter [facility] Date(s): 04/22/21 - 04/24/[address] [id number]- Encounter Diagnosis Nausea and vomiting(Final) - 04/22/21 Abdominal pain(Final) - 04/22/21 (Final) - 04/22/21 Discharge Disposition: A-D/C Home Attending Physician: Kristy Brizuela MD Admitting Physician: Nora Alva DO Referring Physician: Not on Staff, Referring MD [...] 17:55:00 EDT, Aerosol, Route to Pharmacy Electronically, [id number], [id number], 166, cm, 04/15/21 9:58:00 EDT, [...] to oldest [Reference Range]: 1 2 3 Weight 60.1 kg (04/22/21 12:49 PM) Oxygen Saturation [94-100 %] 100 % (04/24/21 5:09 PM) 100 % (04/24/21 11:19 AM) 100 % (04/24/21 7:45 AM) Pulse Rate [55-90 bpm] 61 bpm (04/24/21 5:09 PM) 67 bpm (04/24/21 11:19 AM) 63 bpm (04/24/21 7:45 AM) Blood Pressure [90-138/55-84 mm Hg] 111/69mm Hg (04/24/21 5:09 PM) 116/58mm Hg (04/24/21 11:19 AM) 106/54mm Hg (04/24/21 7:45 AM) Respiratory Rate [16-30 br/min] 20 br/min (04/24/21 5:09 PM) 22 br/min (04/24/21 11:19 AM) 18 br/min (04/24/21 9:00 AM) Temperature [96.8-100.4 DegF] 97.9 DegF (04/24/21 5:09 PM) 97.9 DegF (04/24/21 11:19 AM) 97.9 DegF (04/24/21 7:45 AM) Mode of Delivery (Oxygen) Room air (04/24/21 5:09 PM) Room air (04/24/21 11:19 AM) Room air (04/24/21 7:45 AM) Blood pressure sites Arm, left (04/24/21 5:09 PM) Arm, left (04/24/21 11:19 AM) Arm, left (04/24/21 7:45 AM) Temperature Route Oral (04/24/21 5:09 PM) Oral (04/24/21 11:19 AM) Oral (04/24/21 7:45 AM) Social History Social History Type Response Smoking Status Never smoker entered on: 10/21/14 Sex
[2023-10-06 03:57] VITALS: BP 110/80; PULSE 82; RESP 16; TEMP 36.7; O2SAT 100
--- NOTE | 2023-10-06 04:00 | MHC.EDTECH ---
Hourly rounds and vitals completed,Attempted to get a urine sample patient is unable to go at this time. Belonging list completed and copy placed in chart. Visitor at bedside and call roy within reach
--- NOTE | 2023-10-06 04:36 | PC.NURSE ---
Assumed care of pt. Pt yaneth harrison, no acute distress at this time. Pending admission room availability.
[2023-10-06 04:58] LABS: MANUAL DIFF FLAG NO
[2023-10-06 04:59] LABS: Basophils Percent Auto 0.2 % (0-2); Hematocrit 41.5 % (37.0-47.0); Hemoglobin 13.7 g/dl (12.0-16.0); Imm Gran Abs Auto 0.03 X10*3/uL (0.00-0.03); Imm Gran Pct Auto 0.5 % (0.0-0.4); Lymphocytes Absolute Auto 1.7 X10*3/uL (1.2-4.9); Mean Corpuscular Hemoglobin 25.6 pg (27.0-33.0); Mean Corpuscular Volume 77.6 fL (80.0-98.0); Mean Platelet Volume 11.1 fL (9.4-12.3); Monocytes Absolute Auto 0.6 X10*3/uL (0.1-1.2); Monocytes Percent Auto 10.2 % (2-11); Neutrophils Absolute Auto 3.7 x10*3/uL (2.0-8.3); Neutrophils Percent Auto 61.1 % (45-73); Platelet Count 289 X10*3/uL (160-400); Red Blood Count 5.35 X10*6/uL (4.20-5.50); Red Cell Distribution Width 15.4 % (11.0-16.0)
[2023-10-06 05:30] LABS: Anion Gap 13 (12-20); Blood Urea Nitrogen 13 mg/dL (9-16); Calcium 7.9 mg/dL (8.4-10.2); Carbon Dioxide 18 mmol/L (22-29); Chloride 111 mmol/L (96-108); Creatinine Clr Calc Pharmacy 108.5; Estimated Glomerular Filt Rate > 60; Glucose Random 126 mg/dL (60-115); Potassium 3.6 mmol/L (3.3-5.1); Sodium 138 mmol/L (135-145)
--- NOTE | 2023-10-06 06:31 | MHC.EDTECH ---
Hourly rounds completed, patient is sleeping at this time.
[2023-10-06 06:56] LABS: Estimated Average Glucose 103 mg/dL; Hemoglobin A1c % 5.2 % (<6.0)
[2023-10-06] MEDS: 0.9 % Sodium Chloride Flush 3 ML SYRINGE IVFLUSH (07:19)
--- NOTE | 2023-10-06 07:30 | PC.NURSE ---
Pt is alert and oriented. States nausea persist, no acute vomiting at this time Tolerating water, no appetite for breakfast. Denies abd pain unless actively vomiting. NSR on tele. Denies CP or SOB. States dizziness is baseline d/t visual impairment. Skin sl pale, warm and dry. Visitor at bedside. Speaking full sentences.
[2023-10-06 08:00] VITALS: BP 120/69; PULSE 64; RESP 15; TEMP 36.1; O2SAT 97
--- NOTE | 2023-10-06 09:00 | PHA.MEDREC ---
Pharmacy Consult ? Medication Reconciliation Pharmacy has completed the medication reconciliation Spoke to patient to confirm meds..
--- NOTE | 2023-10-06 09:01 | ECG_ITS ---
Test Reason : qt Blood Pressure : / mmHG Vent. Rate : 058 BPM Atrial Rate : 058 BPM P-R Int : 136 ms QRS Dur : 086 ms QT Int : 500 ms P-R-T Axes : 031 066 053 degrees QTc Int : 490 ms Sinus bradycardia Prolonged QT Nonspecific ST abnormality Abnormal ECG When compared with ECG of 06-OCT-2023 01:10, Heart rate has decreased Referred By: Wilson Smith Electronically Signed By:TY REINOSO MD
[2023-10-06 09:57] LABS: Calcium 8.1 mg/dL (8.4-10.2)
--- NOTE | 2023-10-06 10:25 | PM.CNCAR ---
History of Present Illness History of Present Illness Date of Service: 10/06/23 Chief complaint: Nausea/Vomiting Narrative: This is a cardiology consultation regarding prolonged QT. patient herself states she does not have any history of cardiac issues including coronary disease myocardial infarction or cardiomyopathy or in fact anything cardiac related. Current admissions mainly for nausea, vomiting, diarrhea. She has been having lot of nausea as well as vomitings including diarrhea for the last 3-4 days or so. She states she is having in fact profound diarrhea for the last few days, essentially all through the day. She has also been having some spasms follow the body and sensation for like her jaw cannot be opened. In this context, she had an EKG which shows prolonged QT. She also has low calcium. Abnormal LFTs. Slightly elevated troponins. Hence she has been admitted for further care. Review of Systems Review of Systems: Yes all other systems are reviewed and are negative Constitutional: Constitutional: Reports as per HPI and Reports no additional constitutional complaints Eyes: Eyes: Reports as per HPI and Denies no additional eye complaints ENT: Denies system reviewed and no additional complaints, except as documented and Reports as per HPI Cardiovascular: Cardiovascular: Reports as per HPI, Reports no additional cardiovascular complaints, Denies acrocyanosis, Denies cool extremities, Denies chest pain, Denies leg edema, Denies lightheadedness, Denies palpitations and Denies dyspnea Respiratory: Respiratory: Reports as per HPI, Denies no additional respiratory complaints and Denies dyspnea Gastrointestinal: Gastrointestinal: Reports as per HPI and Denies no additional gastrointestinal complaints Genitourinary: Genitourinary: Reports as per HPI Musculoskeletal: Musculoskeletal: Reports no additional musculoskeletal complaints and Reports as per HPI Integumentary/Breasts: Skin/Breast: Reports system reviewed and no additional complaints, except as docu Neurologic: Reports system reviewed and no additional complaints, except as documented and Reports as per HPI Psychiatric: Psychiatric: Reports no additional psychiatric complaints and Reports as per HPI Endocrine: Endocrine: Reports no additional endocrine complaints, Reports as per HPI and Denies palpitations Hematologic/Lymphatic: Hematologic/Lymphatic: Reports no additional hematologic/lymphatic complaints and Reports as per HPI Allergic/Immunologic: Allergic/Immunologic: Reports no additional allergic/immunologic complaints and Reports as per HPI [facility] Family History Pertinent family history: No history of prolonged QT in family. No sudden cardiac . Social History Social History Alcohol intake: never Patient Tobacco Use Status: Never used Tobacco Second Hand Smoke Exposure: No Meds Allergies Allergy/AdvReac Type Severity Reaction Status Date / Time No Known Allergies Allergy Verified 10/05/23 22:03 Active Medications: Current Medications Acetaminophen (Acetaminophen 325 Mg Tablet) 650 mg PO Q6H PRN PRN Reason: Pain, Mild (Pain Scale 1-3) Brimonidine Tartrate (Brimonidine Tartrate 0.2% Oph 5 Ml Bottle) 1 drop EYE-LEFT BID MADHAV Latanoprost (Latanoprost 0.005 % Ophth Nabila 2.5 Ml Drops) 1 drop EYE-LEFT BEDTIME MADHAV Melatonin (Melatonin 3 Mg Tablet) 6 mg PO BEDTIME PRN PRN Reason: Insomnia Ondansetron HCl (Ondansetron Hcl 4 Mg/2 Ml Vial) 4 mg IVPUSH Q8H PRN PRN Reason: Nausea and Vomiting Sodium Chloride (0.9 % Sodium Chloride Flush 3 Ml Syringe) [address] [facility] Last Admin: 10/06/23 07:19 Dose: 3 ml Timolol Maleate (Timolol Maleate 0.5 % Oph Nabila 5 Ml Drbtl) 1 drop EYE-BOTH BID [facility] Home Medications Medication Instructions Recorded Confirmed Last Taken Type brimonidine 0.2 %-timolol 0.5 % 1 drp ophthalmic-Left BID 10/06/23 10/06/23 10/05/23 History eye drops latanoprost 0.005 % eye drops 1 drp BEDTIME 10/06/23 10/06/23 10/05/23 History loratadine 10 mg tablet 10 mg PO DAILY PRN Allergy Symptoms 10/06/23 10/06/23 Unknown History Physical Exam Vital Signs: Vital Signs: Last Vital Signs Temp 97 F 10/06/23 08:00 Pulse 64 10/06/23 08:00 Resp 15 10/06/23 08:00 BP 120/69 10/06/23 08:00 Pulse Ox 97 10/06/23 08:00 O2 Del Method Room Air 10/06/23 08:00 BMI result Body Mass Index 22.9 Const: General: comfortable and no acute distress Orientation/consciousness: patient oriented x3 HEENT: Other: Unremarkable Head: Yes normal to inspection Neck: Neck: Yes normal visual inspection Chest: Chest palpation & inspection: normal inspection of the chest Resp: Auscultation: clear to auscultation bilaterally Cardio: Palpation: normal PMI Heart sounds: S1 normal heart sound present, S2 normal heart sound present, no gallops, no murmurs and no rubs GI: Palpation (GI): Soft to palpation Back/Spine/Pelvis: Other: unremarkable Skin: General skin exam: no rashes or lesions noted Neuro: General: patient oriented x3 Extrem: General: Yes normal to inspection Psych: Mental Status: mental status grossly normal Objective Labs and Meds 10/06/23 04:52 10/06/23 04:52 Lab results: Laboratory Results - last 24 hr 10/05/23 10/06/23 10/06/23 22:41 01:38 04:52 WBC 7.5 6.0 RBC 6.14 H 5.35 Hgb 15.7 13.7 Hct 46.0 41.5 MCV 74.9 L 77.6 L MCH 25.6 L 25.6 L MCHC 34.1 33.0 RDW 15.8 15.4 Plt Count 342 289 MPV 11.3 11.1 Immature Gran % (Auto) 0.4 0.5 H Neut % (Auto) 76.3 H 61.1 Lymph % (Auto) 16.2 L 28.0 [place] % (Auto) 7.0 10.2 Eos % (Auto) 0.0 0.0 Baso % (Auto) 0.1 0.2 Lymph # (Auto) 1.2 1.7 [place] # (Auto) 0.5 0.6 Eos # (Auto) 0.0 0.0 Baso # (Auto) 0.0 0.0 Abs Immat Gran (auto) 0.03 0.03 Absolute Neuts (auto) 5.7 3.7 Absolute Nucleated RBC 0.000 0.000 Nucleated RBC % (auto) 0.0 0.0 Hold Purple Top Sodium 136 138 Potassium 3.4 3.6 Chloride 106 111 H Carbon Dioxide 16 L 18 L Anion Gap 17 13 BUN 15 13 Creatinine 0.78 0.61 Estim Creat Clear Calc 84.9 108.5 Estimated GFR > 60 > 60 Random Glucose 191 H 126 H Estimat Average Glucose 103 Hemoglobin A1c % 5.2 Calcium 9.4 7.9 L D Magnesium 2.0 2.6 Total Bilirubin 0.3 Direct Bilirubin 0.1 AST 73 H ALT 155 H Alkaline Phosphatase 86 Troponin I High Sens 43.9 H 52.9 H* 46.0 H Total Protein 7.7 Albumin 4.2 Lipase 7 L Beta HCG, Quant < 2 10/06/23 09:37 WBC RBC Hgb Hct MCV MCH MCHC RDW Plt Count MPV Immature Gran % (Auto) Neut % (Auto) Lymph % (Auto) [place] % (Auto) Eos % (Auto) Baso % (Auto) Lymph # (Auto) [place] # (Auto) Eos # (Auto) Baso # (Auto) Abs Immat Gran (auto) Absolute Neuts (auto) Absolute Nucleated RBC Nucleated RBC % (auto) Hold Purple Top SEE NOTE Sodium Potassium Chloride Carbon Dioxide Anion Gap BUN Creatinine Estim Creat Clear Calc Estimated GFR Random Glucose Estimat Average Glucose Hemoglobin A1c % Calcium 8.1 L Magnesium Total Bilirubin Direct Bilirubin AST ALT Alkaline Phosphatase Troponin I High Sens Total Protein Albumin Lipase Beta HCG, Quant ECG Interpretation: EKG with sinus tachycardia 101/Min; no significant ST-T changes; corrected QT is prolonged to more than 600 milliseconds. The repeat EKG, corrected QT is lower at 530 milliseconds but difficult to be accurate as the downsloping T-wave gradually reaches the ST segment. Hence no clear definitive cut off point. Assessment and Plan (1) Prolonged QT interval: Status: Acute (2) Elevated troponin: Status: Acute (3) Hypocalcemia: Status: Acute (4) Gastroenteritis: Status: Acute Plan Calcium levels in the labs include 9.4, 7.9 and 8.1. Abnormal LFTs. High sensitivity troponins slightly elevated at 43, 52 and 46. Potassium levels of 3.4 and 3.6. Magnesium level is okay. Overall, prolonged QT in the setting of gastroenteritis type symptoms and abnormal electrolytes. With prolongation of QT, there is increased risk of polymorphic VT. We will check an echocardiogram from cardiac standpoint. Otherwise, main focus should be on rehydration and electrolyte replacement including potassium and calcium. Discussed with Selma Nunes. Procedures Date of Service Date of Service: 10/06/23
--- NOTE | 2023-10-06 11:14 | PM.EVENT ---
Event Note Date of Service: 10/06/23 Event Note: seen and examined this morning presented after 3 days of persistent N/V/D admitted for prolonged qt and elevated trops Qtc improved somewhat cardiology following goal mag >2, k >4 will replace potassium calcium low today, normal on arrival; will check albumin tele monitoring elevated cardiac enzymes trops have remained flat no chest pain ? due to demand from viral illness echo pending cardiology following N/V/D no abdominal pain likely r/t viral gastroenteritis sister recently had same illness diarrhea resolved IVF difficult to manage nausea given prolonged qt- will trial scopolamine, ativan if not effective supportive care legal blindness left eye resume home eyedrops mild transaminitis trend LFTs remainder per admission H&P Time Spent With Patient Time: Total time managing care of this patient today ____ minutes.
--- NOTE | 2023-10-06 11:28 | MHC.CM.PN ---
JOY 10/06/23 Female 27 DX N+V lives with sister and Roommate. She is visually impaired. Her sister assists prn. A HCP has been documented and scanned into EMR. [address] [place], [place] [id number], Family resource guide and MD brochure provided. Patient has a PCP @ [facility]. She does not know the name. She is interested in obtaining a [facility] provider. DP home with family assist. Patient will transport via [facility] shuttle home at discharge.
[2023-10-06 11:34] LABS: Alanine Aminotransferase 119 U/L (0-31); Albumin Level 3.4 g/dL (3.5-5.0); Alkaline Phosphatase 68 U/L (39-117); Aspartate Amino Transferase 50 U/L (5-31); Bilirubin Direct < 0.2 mg/dL (0.0-0.5); Bilirubin Total 0.2 mg/dL (0.0-1.0); Total Protein 6.2 g/dL (6.5-8.0)
[2023-10-06] MEDS: Scopolamine 1.5 MG PATCH.TD.3 EAR-BEHIND (11:35)
[2023-10-06] MEDS: Potassium Chloride ER 20 MEQ TAB.ER.PRT 40 MEQ PO (11:35)
[2023-10-06] MEDS: Lactated Ringers 1,000 ML 100 ML IVCONT ×2 (11:40→21:23)
[2023-10-06 15:03] VITALS: BP 112/71; PULSE 59; RESP 20; TEMP 36.1; O2SAT 100
[2023-10-06 19:13] VITALS: BP 105/73; PULSE 75; RESP 20; TEMP 36.7; O2SAT 98
[2023-10-06] MEDS: Brimonidine Tartrate 0.2% Oph 5 ML BOTTLE 1 DROP EYE-LEFT (19:30)
[2023-10-06] MEDS: LORazepam 2 MG/ML VIAL 1 MG IVPUSH (19:30)
[2023-10-06] MEDS: Latanoprost 0.005 % Ophth Sol 2.5 ML DROPS 1 DROP EYE-LEFT (19:30)
[2023-10-06] MEDS: timoloL maleate 0.5 % Oph Sol 5 ML DRBTL 1 DROP EYE-BOTH (19:30)
--- NOTE | 2023-10-07 | ECG_ITS ---
Test Reason : qtc check Blood Pressure : / mmHG Vent. Rate : 066 BPM Atrial Rate : 066 BPM P-R Int : 134 ms QRS Dur : 086 ms QT Int : 442 ms P-R-T Axes : 028 071 051 degrees QTc Int : 463 ms Normal sinus rhythm with sinus arrhythmia Nonspecific ST abnormality Abnormal ECG When compared with ECG of 06-OCT-2023 10:46, No significant change was found Referred By: Maxwell Weaver Electronically Signed By:TY REINOSO MD
[2023-10-07 03:28] VITALS: BP 116/68; PULSE 58; RESP 20; TEMP 36.3; O2SAT 100
--- NOTE | 2023-10-07 06:18 | PC.NURSE ---
Pt did not void all shift. Bladder scanned for 306, denies discomfort or feeling of need to go. Has not voided since 10/06 evening. Will allow for more time to void. MD Gould updated.
--- NOTE | 2023-10-07 07:00 | CA_ITS ---
Transthoracic Echocardiogram Patient (Last, First, Middle): Selma Gamino, Gender: Female Date of : 1995 Age: 27 Procedure Date: 10/07/2023 Procedure Type: Transthoracic Echocardiogram Location: [facility] Height: 157.48 cm Weight: 56.7 kg BSA: 1.57 m2 Heart Rate: 64 bpm BP: 113 / 61 mmHg Application Release Manager: SB Referring MD: Wilson Smith MD Symptoms: prolonged QT Study Quality: Adequate ECG Rhythm: Sinus Conclusions: - Normal left ventricular size, thickness, systolic function, and wall motion. The visually estimated ejection fraction is between 55-60%. Diastolic function is normal for age. - Normal right ventricular cavity size and systolic function. Findings Left Ventricle Normal left ventricular size, thickness, systolic function, and wall motion. The visually estimated ejection fraction is between 55-60%. Diastolic function is normal for age. Right Ventricle Normal right ventricular cavity size and systolic function. Atria Both atria are normal in size. Aortic Valve Normal aortic valve structure and function. There is no aortic valve stenosis. There is no aortic valve regurgitation. Mitral Valve Normal mitral valve structure and function. There is no mitral valve regurgitation. There is no mitral valve stenosis. Pulmonic Valve Normal pulmonic valve structure and function. There is trace pulmonic valve regurgitation. Tricuspid Valve Normal tricuspid valve structure and function. There is trace tricuspid valve regurgitation. Normal right atrial pressure. There is no evidence of pulmonary hypertension. Great Vessels All visible segments of the aorta are normal in size. The visualized portions of the pulmonary artery and branches are normal. Venous The inferior vena cava is normal in size and collapses greater than 50% with inspiration. Pericardium/Pleural There is no evidence of pericardial effusion. Prior Study Comparison No prior study available for comparison. Measurements 2D Linear Measurements IVSd: 0.72 0.6-0.9/0.6-1.0 cm LVIDd: 4.51 3.9-5.3/4.2-5.9 cm LVIDd Index: 2.87 2.4-3.2/2.2-3.1 cm/m2 LVIDs: 3.32 2.0-3.6 cm LVPWd: 0.60 0.7-1.1 cm LA Diam: 3.00 2.7-3.8/3.0-4.0 cm LAIDs Index: 1.91 1.5-2.3 cm/m2 LV Mass: 110.78 67-162/88-224 g LV Mass Index: 70.56 43-95/49-115 g/m2 LVOT Diam: 1.90 3.0+(-)1.3 cm 2D Systolic Function EF 4C: 51.60 >55% Mitral Valve MV Pk E: 0.95 MV PK A: 0.41 MV Decel Time: 134.00 E/A: 2.30 E'Lateral: 15.40 E'Medial: 10.60 E/E' Med: 9.00 E/E' Lat: 6.20 PHT: 39.00 MVA PHT: 5.64 Decel [place]: 7.08 Aortic Valve AoV Pk Silviano: 1.50 AoV Pk Grad: 9.00 MIKKI: 2.61 LVOT LVOT Pk Silviano: 1.37 LVOT Mn Silviano: 0.95 LVOT VTI: 0.26 LVOT Pk Grad: 8.00 LVOT Mn Grad: 4.00 LVOT Diam: 1.90 LVOT Area: 2.84 Diastolic Function MV Pk E: 0.95 MV Pk A: 0.41 E/A: 2.30 E'Medial: 10.60 E/E' Med: 9.00 E' Laterial: 15.40 E/E' Lat: 6.20 Right Ventricle TAPSE (mm): 22.00 TVS' Silviano: 13.20 Tricuspid Valve TR Pk Silviano: 2.09 TR Pk Grad: 17.00 RA Press: 3.00 RVSP: 20.00 Great Vessels Aorta Sinus of Valsalva: 2.50 2.0-3.5 cm Ao Asc: 2.40 2.1-3.4 cm Pulmonary Veins Pulm Vein S/D 1.50 Pulmonary Valve PV Pk Silviano: 0.92 Peak PV Grad: 3.00 GA Pk Silviano: 1.15 Updated in Other Vendor System with Status of Final Maxwell Weaver MD electronically signed on 10/07/2023 8:26:15 PM with status of Final
[2023-10-07 07:35] VITALS: BP 113/61; PULSE 82; RESP 20; TEMP 36.3; O2SAT 98
[2023-10-07] MEDS: Latanoprost 0.005 % Ophth Sol 2.5 ML DROPS 1 DROP EYE-LEFT (08:07)
[2023-10-07] MEDS: Lactated Ringers 1,000 ML 100 ML IVCONT (08:07)
[2023-10-07] MEDS: timoloL maleate 0.5 % Oph Sol 5 ML DRBTL 1 DROP EYE-BOTH (08:07)
[2023-10-07] MEDS: Brimonidine Tartrate 0.2% Oph 5 ML BOTTLE 1 DROP EYE-LEFT (08:07)
[2023-10-07 09:18] LABS: Anion Gap 8 (12-20); Blood Urea Nitrogen 14 mg/dL (9-16); Calcium 7.8 mg/dL (8.4-10.2); Carbon Dioxide 23 mmol/L (22-29); Chloride 109 mmol/L (96-108); Creatinine Clr Calc Pharmacy 101.8; Estimated Glomerular Filt Rate > 60; Glucose Random 71 mg/dL (60-115); Magnesium 1.9 mg/dL (1.6-2.6); Potassium 3.6 mmol/L (3.3-5.1); Sodium 136 mmol/L (135-145)
--- NOTE | 2023-10-07 10:52 | PM.DS ---
DS: Providers Provider Date of Service: 10/07/23 Date of admission: 10/06/23 03:21 Primary care physician: Unknown Physician Consults: 10/06/23 03:23 Consult to Cardiology Routine Consulting Provider: [facility] Cardiovascular Services Reason for consultation: prolonged qtc and elevated troponin DS: Diagnosis Discharge Diagnosis (1) Prolonged QT interval: Status: Acute (2) Elevated troponin: Status: Acute (3) Hypocalcemia: Status: Acute (4) Gastroenteritis: Status: Acute DS: Summary Hospital Course Hospital Course: This is a 27-year-old female with no pertinent significant past medical history who presents to the emergency department for evaluation of nausea and vomiting. Patient states it has been ongoing for the last 3 days. Also has multiple complaints including muscle spasms, chest pain. Patient states she has been feeling sick and anxious for the last 3 days. No specifics given, patient is very vague in her complaints. States the chest pain does not increase with ambulation and does not resolve with rest. She was found to be tachycardic and hypertensive upon arrival. No fever, chills, palpitations, shortness of breath, abdominal pain, changes in urinary or bowel habits. In the emergency department, troponin found to be elevated and patient found to have a prolonged QT interval. Cardiology was consulted who requested admission for observation. 27-year-old woman treated for viral gastroenteritis. Unfortunately she had some episodes of prolonged QTC and was unable to take antiemetics but trialed scopolamine patch. QTC has since normalized. EKG has remained normal sinus rhythm.She was able to eat a regular solid diet today. treated with IV fluids, diarrhea has resolved. also an episode of elevated cardiac enzymes that remain flat with no chest pain likely due to viral illness . Plans for discharge home, Eat bland foods for a few days then resume regular diet. Legally blind. Resume home eyedrops Mild transaminitis. Likely secondary to viral gastroenteritis, trended down. Time Attestation Discharge coordination time: Greater than 30 minutes Quality: Safe Use of Opioids Does Pt have an Active Cancer Diagnosis on the Problem List?: No Quality: Stroke Does the patient have a stroke diagnosis?: No Physical Exam Vital Signs: Vital Signs: Last Vital Signs Temp 97.3 F 10/07/23 07:35 Pulse 82 10/07/23 07:35 Resp 20 10/07/23 07:35 BP 113/61 10/07/23 07:35 Pulse Ox 98 10/07/23 07:35 O2 Del Method Room Air 10/07/23 07:35 BMI result Body Mass Index 22.9 Appearing in no acute distress head is normocephalic atraumatic eyes pupils are PERRLA sclera is anicteric mouth throat mucous membranes are intact and moist neck is supple no lymphadenopathy, no JVD noted lung sounds are clear to auscultation heart regular rate rhythm, clear S1, S2 positive bowel sounds, abdomen is soft, nontender neuro patient is alert x3, no focal deficits DS: Data Data Completed and Pending Labs on day of discharge: Laboratory Results - last 24 hr 10/06/23 10/07/23 04:52 07:03 Hold Purple Top SEE NOTE Sodium 136 Potassium 3.6 Chloride 109 H Carbon Dioxide 23 Anion Gap 8 L BUN 14 Creatinine 0.65 Estim Creat Clear Calc 101.8 Estimated GFR > 60 Random Glucose 71 Calcium 7.8 L Magnesium 1.9 Total Bilirubin 0.2 Direct Bilirubin < 0.2 AST 50 H ALT 119 H Alkaline Phosphatase 68 Total Protein 6.2 L Albumin 3.4 L Discharge Plan Discharge Anticipated Discharge Date/Time: 10/07/23 10:50 Patient Disposition: Home, Self-Care Discharge Diagnosis: Viral gastroenteritis Prolonged QTC Discharge Medications: Continued latanoprost 0.005 % drops 1 drp BEDTIME loratadine 10 mg tablet 10 mg PO DAILY PRN (Reason: Allergy Symptoms) brimonidine-timolol 0.2-0.5 % drops 1 drp ophthalmic-Left BID Discharge Orders: Discharge Order (Routine); Ordered 10/07/23 Ordered By: Valeri Stevens Diet: Advance to usual diet Activity on Discharge: As tolerated Stand Alone Forms: Patient Portal Discharge page Care Plan Goals: complete resolution of symptoms Health Concerns: viral gastroenteritis Prolonged QTC Plan of Treatment: follow-up with primary care provider as needed Take all medications as prescribed Assessment: see discharge summary
--- NOTE | 2023-10-07 11:06 | MHC.CM.PN ---
order for home, self-care. Per prev. CM notation, Pt requires shuttle for transport. Shuttle set up for her for 1:15 D/C for home D/C. Cm acknowledge order.
--- NOTE | 2023-10-07 11:08 | MHC.CM.PN ---
Shuttle pass completed and given to Pt for her transport.
--- NOTE | 2023-10-07 11:13 | MHC.CM.PN ---
Notified nurse of D/C via [place] Text; informed Pt received shuttle pass and time of 1:15 for scheduled shuttle ride.
[2023-10-07 11:21] VITALS: BP 113/65; PULSE 70; RESP 18; TEMP 36.5; O2SAT 98
--- NOTE | 2023-10-07 11:59 | PM.PNCARD ---
Subjective Subjective Date of Service: 10/07/23 Interval history: Seen and examined at bedside. She has been doing better. Trying to eat this morning. Repeat EKG to be performed today. Potassium 3.6, magnesium 1.9. Physical Exam Vital Signs: Last Vital Signs Temp 97.7 F 10/07/23 11:21 Pulse 70 10/07/23 11:21 Resp 18 10/07/23 11:21 BP 113/65 10/07/23 11:21 Pulse Ox 98 10/07/23 11:21 O2 Del Method Room Air 10/07/23 11:21 BMI result Body Mass Index 22.9 GENERAL APPEARANCE: in no acute distress, pleasant. NECK: no carotid bruit, no jugular venous distention. SKIN: no suspicious lesions, warm and dry. HEART: no murmurs, regular rate and rhythm. LUNGS: clear to auscultation bilaterally. ABDOMEN: soft, nontender. EXTREMITIES: no edema. PERIPHERAL PULSES: equal. NEUROLOGIC: No gross deficits, AAO X 3 Objective Labs and Meds 10/06/23 04:52 10/07/23 07:03 Lab results: Laboratory Results - last 24 hr 10/07/23 07:03 Hold Purple Top SEE NOTE Sodium 136 Potassium 3.6 Chloride 109 H Carbon Dioxide 23 Anion Gap 8 L BUN 14 Creatinine 0.65 Estim Creat Clear Calc 101.8 Estimated GFR > 60 Random Glucose 71 Calcium 7.8 L Magnesium 1.9 Progress Note: A&P Assessment and plan (1) Gastroenteritis: Status: Acute (2) Prolonged QT interval: Status: Acute Plan 27-year-old female with gastroenteritis, electrolyte imbalance and prolonged QT interval. Potassium was 3.6 and magnesium 1.9. Please repeat potassium with target potassium 4-4.5. Give 1 g of magnesium. Monitor QT interval closely. All medications should be checked for interactions. We will check echocardiogram today. Thank you for allowing me to participate in the care of your patient. Please feel free to contact me if you have any questions. Time Spent With Patient Time: Total time managing care of this patient today ____ minutes. Progress Note: Quality Stroke Does the patient have a stroke diagnosis?: No Procedures Date of Service Date of Service: 10/07/23
[2023-10-07 12:20] LABS: Appearance Urine Cloudy; Color Urine Yellow; Glucose Urine UA 100 mg/dL (Negative); Leukocyte Esterase Urine Small (1+) (Negative); Nitrite Urine Negative (Negative); PH 6.5 (5.0-9.0); Specific Gravity - Urine >= 1.030 (1.005-1.025); UMIC TRIGGER UACC YES; Urine Blood Large (3+) (Negative); Urine Ketones Trace mg/dL (Negative); Urine Protein 30 (1+) mg/dL (Neg-Trace)
[2023-10-07 12:21] LABS: Bacteria Urine 4+ (None Seen); Hyaline Casts Urine 0-2 /LPF (0-2); RBC Urine >20 /HPF (0-2); Squamous Epithelial Cell Urine 0-2 /HPF (0-2); UACC Culture Trigger YES; WBC Urine 21-50 /HPF (0-5)
[2023-10-07 12:27] LABS: Amphetamine Screen Urine Not Detected (Not Detect); Barbiturates, Urine Not Detected (Not Detect); Benzodiazepines Screen Urine Not Detected (Not Detect); Cannabinoid Screen Urine POSITIVE (Not Detect); Cocaine Screen Urine Not Detected (Not Detect); Fentanyl, urine Not Detected (Not Detect); Opiate Screen Urine Not Detected (Not Detect); Phencyclidine Screen Urine Not Detected (Not Detect)
== END 2023-10-07 13:52 | disposition home or self-care (01) ==
LOC: HO.ED 10-06 03:09 → HO.EDOVER 10-06 03:26 → HO.IMC 10-06 07:31
PROVIDERS: Physician Assistant Medical; Admitting Provider Student in an Organized Health Care Education/Training Program; Emergency Provider Emergency Medicine; Visit Provider Nurse Practitioner Acute Care
DX: A08.4 Viral intestinal infection, unspecified (principal); R94.31 Abnormal electrocardiogram [ECG] [EKG]; E83.51 Hypocalcemia; R79.89 Other specified abnormal findings of blood chemistry; K52.9 Noninfective gastroenteritis and colitis, unspecified; R74.01 Elevation of levels of liver transaminase levels; R11.2 Nausea with vomiting, unspecified; F41.0 Panic disorder [episodic paroxysmal anxiety]; M62.838 Other muscle spasm; R07.9 Chest pain, unspecified; R00.0 Tachycardia, unspecified; H54.8 Legal blindness, as defined in USA; I10 Essential (primary) hypertension
CPT/HCPCS: 36415; 80048; 80076; 80307; 81001; 82310; 83036; 83690; 83735; 84484; 84702; 85025; 87086; 93005; 93306; 96361; 96365; 96366; 96375; 99222; 99285; J2060; J2405; J3475; J7120

== ENCOUNTER 2023-10-06 03:21 | Outpatient (BNV) | payer OTHER, SELFPAY | END 2023-10-07 07:00 | PROVIDERS: Admitting Provider Student in an Organized Health Care Education/Training Program; Emergency Provider Emergency Medicine; Visit Provider Internal Medicine Cardiovascular Disease | DX: I45.81 Long QT syndrome (principal) | CPT/HCPCS: 93306 ==

== ENCOUNTER → 2023-10-06 03:21 | Outpatient (BNV) | payer OTHER, SELFPAY | PROVIDERS: Admitting Provider Student in an Organized Health Care Education/Training Program; Emergency Provider Emergency Medicine; Visit Provider Student in an Organized Health Care Education/Training Program | DX: R94.31 Abnormal electrocardiogram [ECG] [EKG] (principal); R79.89 Other specified abnormal findings of blood chemistry; E83.51 Hypocalcemia; K52.9 Noninfective gastroenteritis and colitis, unspecified | CPT/HCPCS: 99222; 99239; 99499 ==

== ENCOUNTER → 2023-10-06 03:21 | Outpatient (BNV) | payer OTHER, SELFPAY | PROVIDERS: Admitting Provider Student in an Organized Health Care Education/Training Program; Emergency Provider Emergency Medicine; Visit Provider Internal Medicine | DX: K52.9 Noninfective gastroenteritis and colitis, unspecified (principal); R94.31 Abnormal electrocardiogram [ECG] [EKG] | CPT/HCPCS: 99223; 99232 ==